=== PATIENT | female | born 1975 | race Caucasian/White ===

== ENCOUNTER 2016-12-27 19:52 | Emergency (ER) | payer MEDICAID ==
[2016-12-27 19:59] VITALS: BMI 62.4
[2016-12-27 20:00] VITALS: PULSE 84; RESP 20; TEMP 97.5; O2SAT 96
[2016-12-27 20:11] VITALS: BP 153/105
--- NOTE | 2016-12-27 21:34 | C.PDOC ---
History Of Present Illness 40 year old female who presents to the ER seeking narcotic pain medication for her chronic pain and nausea. Patient is on an extensive narcotic and benzo regiment at home. Patient was seen recently at [facility] for the same complaint, she was described as drug seeking. Pt lives in [place], unclear why she came to our ED. Denies other complaints at this time. Time Seen by Provider: 12/27/16 21:23 Chief Complaint (Nursing): GI Problem History Per: Patient History/Exam Limitations: no limitations Onset/Duration Of Symptoms: Days Current Symptoms Are (Timing): Still Present Associated Symptoms: Nausea. denies: Fever, Chills, Vomiting, Chest Pain Exacerbating Factors: None Alleviating Factors: None Recent travel outside of the [place]: No Abnormal Vaginal Bleeding: No Past Medical History Reviewed: Historical Data, Nursing Documentation, Vital Signs Vital Signs: Last Vital Signs Temp 97.5 F L 12/27/16 19:59 Pulse 84 12/27/16 19:59 Resp 20 12/27/16 19:59 BP 153/105 H 12/27/16 20:11 Pulse Ox 96 12/27/16 23:09 - Medical History PMH: Atrial Fibrillation, Back Problems, Deep Vein Thrombosis, Pulmonary Embolism, Seizures Surgical History: Back Surgery Family History: States: Unknown Family Hx - Social History Hx Alcohol Use: No Hx Substance Use: No Review Of Systems Constitutional: Negative for: Fever, Chills Gastrointestinal: Positive for: Nausea. Negative for: Vomiting, Abdominal Pain Physical Exam - Physical Exam Appears: Non-toxic, No Acute Distress, Other (somnolent, calm) Skin: Normal Color, Warm, Dry Head: Atraumatic, Normacephalic Eye(s): bilateral: Other (Pin point pupils) Oral Mucosa: Moist Chest: Symmetrical, No Tenderness Cardiovascular: Rhythm Regular, No Murmur Respiratory: Normal Breath Sounds, No Rales, No Rhonchi, No Wheezing Gastrointestinal/Abdominal: Soft, No Tenderness Neurological/Psych: Oriented x3, Normal Speech, Normal Cognition ED Course And Treatment O2 Sat by Pulse Oximetry: 96 (Room air) Pulse Ox Interpretation: Normal Progress Note: Zofran administered. Medical Decision Making Medical Decision Making: drug seeking, seems very narcotic sedated [place] reviewed extensive percocet/valium regimen w/u @ [facility] ED 1 wk ago, no change in "symtpoms" Disposition Doctor Will See Patient In The: Office Counseled Patient/Family Regarding: Studies Performed, Diagnosis - Disposition Referrals: [facility] [Outside] [facility] [Outside] [facility] [Outside] Disposition: HOME/ ROUTINE Disposition Time: 21:34 Condition: GOOD Additional Instructions: follow-up with your pain specialist as needed Prescriptions: Ondansetron ODT [Zofran ODT] 1 odt PO BID PRN #6 odt PRN Reason: Nausea/Vomiting Instructions: Chronic Pain (ED), Acute Nausea and Vomiting (ED) Forms: [employer] (Nigerian) - Clinical Impression Clinical Impression: Generalized pain, Nausea & vomiting - Scribe Statement The provider has reviewed the documentation as recorded by the Scribparish Stoll All medical record entries made by the Isabellaibparish were at my direction and personally dictated by me. I have reviewed the chart and agree that the record accurately reflects my personal performance of the history, physical exam, medical decision making, and the department course for this patient. I have also personally directed, reviewed, and agree with the discharge instructions and disposition.
== END 2016-12-27 21:53 | disposition home or self-care (01) ==
LOC: C.ER 19:52
DX: R11.2 Nausea with vomiting, unspecified (principal); R52 Pain, unspecified

== ENCOUNTER 2017-03-12 19:04 | Emergency (ER) | payer MEDICAID ==
[2017-03-12 19:05] VITALS: BMI 62.4
--- NOTE | 2017-03-12 19:37 | C.PDOC ---
History Of Present Illness 41 y/o female c/o SOB and some chest pain that began today. Patient was recently seen at a different hospital for dehydration and vomiting. Patient has numerous visits in this ER and is currently homeless. Denies abdominal pain, fever, or chills. No palpitations or diaphoresis. Time Seen by Provider: 03/12/17 19:23 Chief Complaint (Nursing): Chest Pain History Per: Patient History/Exam Limitations: no limitations Onset/Duration Of Symptoms: Hrs (Today) Current Symptoms Are (Timing): Still Present Severity: Mild Quality: "Pain" Recent travel outside of the [place]: No Additional History Per: Patient Past Medical History Reviewed: Historical Data, Nursing Documentation, Vital Signs Vital Signs: Last Vital Signs Temp 98.9 F 03/12/17 19:17 Pulse 82 03/12/17 20:05 Resp 16 03/12/17 19:17 BP 124/85 03/12/17 19:17 Pulse Ox 100 03/12/17 22:53 - Medical History PMH: Atrial Fibrillation, Back Problems, Deep Vein Thrombosis, Pulmonary Embolism, Seizures Surgical History: Back Surgery, Cholecystectomy Family History: States: Unknown Family Hx - Social History Hx Alcohol Use: No Hx Substance Use: No Review Of Systems Except As Marked, All Systems Reviewed And Found Negative. Constitutional: Negative for: Fever, Chills, Sweats Cardiovascular: Positive for: Chest Pain. Negative for: Palpitations Respiratory: Positive for: Shortness of Breath. Negative for: Cough Gastrointestinal: Negative for: Abdominal Pain Physical Exam - Physical Exam Appears: Non-toxic, No Acute Distress Skin: Warm, Dry Head: Atraumatic, Normacephalic Oral Mucosa: Moist, No Dry Chest: Symmetrical Cardiovascular: Rhythm Regular, No Murmur Respiratory: Normal Breath Sounds, No Rales, No Rhonchi, No Wheezing Gastrointestinal/Abdominal: Soft, No Tenderness Back: No CVA Tenderness Neurological/Psych: Oriented x3, Normal Speech ED Course And Treatment ECG: Interpreted By Me, Viewed By Me ECG Rhythm: Sinus Rhythm ECG Interpretation: No Acute Changes Interpretation Of ECG: Normal sinus rhythm, poor R-wave progression from V1 to V4 Rate From EC O2 Sat by Pulse Oximetry: 100 (RA) Pulse Ox Interpretation: Normal Progress Note: Psatient noted to be stable. No episode of vomiting noted. She is refusing femoral tap for blood work. No IV site noted for blood exreactrion. Patient gave the sme excuse of signing out of [facility] before as noted from old charts. Medical Decision Making Medical Decision Making: Impression: * SOB and some chest pain that began today. Plans: * EKG * Blood labs * CXR * IV fluids * UA Patient refuses femoral tab for blood work. Disposition Counseled Patient/Family Regarding: Diagnosis - Disposition Referrals: [facility] [Outside] Disposition: HOME/ ROUTINE Disposition Time: 23:36 Condition: STABLE Prescriptions: traMADol/Acetaminophen [Ultracet 325 MG-37.5 MG] 1 tab PO Q6 #10 tab Instructions: Connective Tissue Disorders (ED) Forms: [employer] ([place] Citizen) - POA Present On Arrival: None - Clinical Impression Clinical Impression: Chronic pain - Scribe Statement The provider has reviewed the documentation as recorded by the Scribe Saad carrillo All medical record entries made by the Scribe were at my direction and personally dictated by me. I have reviewed the chart and agree that the record accurately reflects my personal performance of the history, physical exam, medical decision making, and the department course for this patient. I have also personally directed, reviewed, and agree with the discharge instructions and disposition.
[2017-03-12 21:38] LABS: RBC URINE < 1 /hpf (0-3); URINE BILIRUBIN NEGATIVE (NEGATIVE); URINE BLOOD NEGATIVE (NEGATIVE); URINE COLOR Yellow (YELLOW); URINE GLUCOSE (UA) NORMAL (Normal); URINE KETONE NEGATIVE (NEGATIVE); URINE LEUKOCYTE ESTERASE NEG Leu/uL (Negative); URINE PROTEIN NEGATIVE (NEGATIVE); WBC URINE 1 /hpf (0-5)
--- NOTE | 2017-03-12 23:11 | CT ---
EXAM: CT Chest Without Intravenous Contrast CLINICAL HISTORY: 41 years old, female; Pain; Chest pain; Type not specified; Additional info: Chest pain/ SOB TECHNIQUE: Axial computed tomography images of the chest without intravenous contrast. All CT scans at this facility use one or more dose reduction techniques, viz.: automated exposure control; ma/kV adjustment per patient size (including targeted exams where dose is matched to indication; i.e. head); or iterative reconstruction technique. COMPARISON: No relevant prior studies available. FINDINGS: Limitations: Suboptimal positioning. Lack of intravenous contrast. Motion artifact - mild. Lungs: Minimal atelectasis/scarring. No consolidation. Few pulmonary nodules, up to 0.4 cm. Pleural space: Trace LEFT pleural effusion/thickening. No pneumothorax. Heart: Mild cardiomegaly. Trace pericardial effusion. Bones/joints: Curvature of spine. No acute fracture. Soft tissues: 0.7 x 0.4 x 0.6 cm nodule RIGHT breast. Mild stranding within subcutaneous tissues of upper abdominal wall. Vasculature: IVC filter. Lymph nodes: No pathologically enlarged lymph nodes. Gallbladder and bile ducts: Cholecystectomy. Kidneys and ureters: Few small calculi within LEFT kidney. IMPRESSION: 1. Mild cardiomegaly with trace pericardial effusion. 2. Trace LEFT pleural effusion/thickening. 3. RIGHT breast lesion. Followup as clinically warranted. 4. Pulmonary nodules. For low-risk patients, no follow-up is necessary. For high-risk patients (smoking history or other known risk factors) an optional CT at 12 months could be performed. 5. Incidental/non-acute findings are described above.
[2017-03-12] MEDS ORDERED: Tramadol 25 mg PO STA (23:39)
[2017-03-12] MEDS ORDERED: Tramadol 25 mg ONE (23:52)
[2017-03-13 02:10] VITALS: BP 124/81; PULSE 62; RESP 20; TEMP 98.2; O2SAT 97
--- NOTE | 2017-03-14 18:54 | CARD ---
APPROVED REPORT EKG Measurement Heart [id number] <Conclusion> Normal sinus rhythm Poor R wave progression. Borderline EKG
== END 2017-03-13 02:45 | disposition home or self-care (01) ==
LOC: C.ER 19:04
DX: G89.29 Other chronic pain (principal); I48.91 Unspecified atrial fibrillation; Z86.718 Personal history of other venous thrombosis and embolism; Z86.711 Personal history of pulmonary embolism

== ENCOUNTER 2017-04-17 12:48 | Emergency (ER) | payer MEDICAID ==
[2017-04-17 12:48] VITALS: BMI 62.4
[2017-04-17] MEDS ORDERED: Sodium Chloride 0.9% 1,000 ML IV ONE (14:37)
[2017-04-17] MEDS ORDERED: Sodium Chloride 0.9% 1,000 ML ONE (15:46)
[2017-04-17] MEDS ORDERED: DiphenhydrAMINE 50 mg/ml Inj ONE ×2 (15:56→18:39)
[2017-04-17] MEDS ORDERED: DiphenhydrAMINE 50 mg/ml Inj IVP STA ×2 (15:57→18:29)
--- NOTE | 2017-04-17 16:09 | C.PDOC ---
History Of Present Illness 41 year old female with a history of Lupus, chronic pain, osteonecrosis of the right hip, presents to the ED with complaints of nausea and vomiting for four days. While on the bus, riding past the hospital, patient began to vomit and brought herself to the ED. Patient reports she is following up for chronic pain issues in [place], [place] at Lupus/ Multiple Sclerosis clinic. At baseline patient uses a walker to assist with ambulation. Patient is pending a total right hip placement. Patient denies abdominal pain, chest pain, weakness, numbness, fever, chills, or other complaints at this time. Time Seen by Provider: 04/17/17 13:57 Chief Complaint (Nursing): Abdominal Pain History Per: Patient History/Exam Limitations: no limitations Onset/Duration Of Symptoms: Days (4 days ) Current Symptoms Are (Timing): Still Present Radiation Of Pain To:: None Associated Symptoms: Nausea, Vomiting. denies: Fever, Chills, Diarrhea, Urinary Symptoms Exacerbating Factors: None Alleviating Factors: None Recent travel outside of the [place]: No Abnormal Vaginal Bleeding: No Past Medical History Reviewed: Historical Data, Nursing Documentation, Vital Signs Vital Signs: Last Vital Signs Temp 98.3 F 04/17/17 16:34 Pulse 82 04/17/17 16:34 Resp 16 04/17/17 16:34 BP 123/77 04/17/17 16:34 Pulse Ox 98 04/17/17 16:34 - Medical History PMH: Atrial Fibrillation, Back Problems, Deep Vein Thrombosis, Pulmonary Embolism, Seizures Surgical History: Back Surgery, Cholecystectomy Family History: States: Unknown Family Hx - Social History Hx Alcohol Use: No Hx Substance Use: No Review Of Systems Constitutional: Negative for: Fever, Chills Cardiovascular: Negative for: Chest Pain, Palpitations Gastrointestinal: Positive for: Nausea, Vomiting. Negative for: Abdominal Pain , Diarrhea Musculoskeletal: Positive for: Other (chronic right hip pain ) Physical Exam - Physical Exam Appears: Non-toxic, No Acute Distress, Other (Plethoric face, patient is morbidly obese ) Skin: Warm, Dry, No Rash Head: Atraumatic, Normacephalic, No Tenderness Eye(s): bilateral: Normal Inspection, PERRL, EOMI Oral Mucosa: Moist Neck: Supple Chest: Symmetrical, No Deformity Cardiovascular: Rhythm Regular, No Murmur, Other (patient is tachycardic ) Respiratory: No Rales, No Rhonchi, No Wheezing, Other (clear to auscultation bilaterally ) Gastrointestinal/Abdominal: Soft, No Tenderness, No Distention, No Guarding, No Rebound, Other (abdomen is obese ) Extremity: No Normal ROM (painful ROM of the right hip ), Tenderness ( tenderness to the right hip, extending to groin that is chronic ), No Pedal Edema, No Calf Tenderness, Capillary Refill (< 2 second ), No Deformity, No Swelling Neurological/Psych: Oriented x3 ED Course And Treatment - Laboratory Results Result Diagrams: 04/17/17 16:13 04/17/17 16:13 Lab Interpretation: Normal (gertrudis hcg neg.) Urine POC: Negative ECG: Interpreted By Me ECG Rhythm: Sinus Rhythm ECG Interpretation: Normal Rate From EC O2 Sat by Pulse Oximetry: 100 (RA) Pulse Ox Interpretation: Normal - Radiology CXR: Interpreted by Me CXR Interpretation: Yes: No Acute Disease - Other Rad Right hip X-Ray X-Ray: Viewed By Me, Read By Radiologist (chronic R hip arthritis, no fx/disloc) obstrucitve series X-Ray: Viewed By Me, Read By Radiologist (normal cxr/abd with normal stool/gas pattern) Progress Note: EKG, obstructive series, right hip X-Ray, blood work, and labs were ordered. Patient was given Pepcid, Morhpine x 2 rounds, Zofan, and IV fluids. Reevaluation Time: 19:33 Reassessment Condition: Improved Medical Decision Making Medical Decision Making: vomiting today, no acute findings preg neg extensive chronic narcotics regimen, some relief with ED morphine regimen as given. No acute issues, ok for d/c and opt f/u. Disposition Doctor Will See Patient In The: Office Counseled Patient/Family Regarding: Studies Performed, Diagnosis - Disposition Disposition: HOME/ ROUTINE Disposition Time: 19:34 Condition: GOOD Forms: [employer] (Uzbek) - Clinical Impression Clinical Impression: Generalized pain, Vomiting - Scribe Statement The provider has reviewed the documentation as recorded by the Scribe Anais Faith All medical record entries made by the Scribe were at my direction and personally dictated by me. I have reviewed the chart and agree that the record accurately reflects my personal performance of the history, physical exam, medical decision making, and the department course for this patient. I have also personally directed, reviewed, and agree with the discharge instructions and disposition.
[2017-04-17 16:17] LABS: EOS # 0.1 K/uL (0.0-0.7); MONO # 0.4 K/uL (0.0-0.8)
[2017-04-17 16:27] LABS: BASO # 0.1 K/uL (0.0-0.2); BASO % 0.9 % (0.0-2.0); EOS % 2.4 % (0.0-4.0); HEMATOCRIT 33.6 % (34.0-47.0); LYMPH # 1.6 K/uL (1.0-4.3); LYMPH % 27.1 % (20.0-40.0); MEAN CELL VOLUME 82.8 fL (81.0-99.0); MEAN CORPUSCULAR HEMOGLOBIN 25.7 pg (27.0-31.0); MEAN PLATELET VOLUME 7.6 fL (7.2-11.7); MONO % 6.4 % (0.0-10.0); NRBC % 0.4 % (0.0-2.0); RED CELL DISTRIBUTION WIDTH 18.3 % (11.5-14.5); WHITE BLOOD COUNT 6.1 K/uL (4.8-10.8)
[2017-04-17 16:34] VITALS: RESP 16
[2017-04-17 16:51] LABS: ALB/GLOB RATIO 1.3 (1.0-2.1); ALKALINE PHOSPHATASE 64 U/L (38-126); ALT/SGPT 24 U/L (9-52); AST/SGOT 21 U/L (14-36); BILIRUBIN,TOTAL 0.6 mg/dL (0.2-1.3); BLOOD UREA NITROGEN 7 mg/dL (7-17); CALCIUM 8.3 mg/dl (8.6-10.4); CARBON DIOXIDE 24 mmol/L (22-30); CHLORIDE 106 mmol/L (98-107); GFR AFRICAN-AMERICAN > 60; GLUCOSE,RANDOM 88 mg/dL (65-105); POTASSIUM 3.9 mmol/L (3.6-5.2); SODIUM 137 mmol/L (132-148); TOTAL PROTEIN 6.4 g/dL (6.3-8.3)
[2017-04-17] MEDS ORDERED: Morphine 4 MG/ML VIAL ONE (18:39)
[2017-04-17 20:06] VITALS: BP 129/88; PULSE 90; TEMP 98.5; O2SAT 99
--- NOTE | 2017-04-18 08:57 | RAD ---
PROCEDURE: HISTORY: lupus, pending total hip, ? osteonecrosis COMPARISON: None available TECHNIQUE: AP view of the pelvis and applicable frog leg views obtained. FINDINGS: Bilateral superolateral hip joint space narrowing with acetabular roof spurring right greater than left. Right femoral head uncovered with mild deformity- hip dysplasia inferred. L4-5 and L5-S1 facet mild hypertrophic arthrosis. No fracture or dislocation appreciated. Bilateral superolateral hip subarticular cystic changes right greater than left. Probable incidental bone island right femoral head neck junction IMPRESSION: No fracture or dislocation. Bilateral hip arthrosis -right hip dysplasia inferred
--- NOTE | 2017-04-18 09:19 | RAD ---
PROCEDURE: Radiographs of the chest and abdomen (obstructive series) HISTORY: abd pain/n/v COMPARISON: No prior. TECHNIQUE: AP radiograph of the chest, with upright and supine radiographs of the abdomen. FINDINGS: CHEST: Lungs: Clear. Shallow lung volumes Cardiovascular: Normal size heart. No pulmonary vascular congestion. Pleura: No pleural fluid. No pneumothorax. Other findings: None. ABDOMEN AND PELVIS: Bowel: Unremarkable bowel gas pattern. No evidence of mechanical obstruction. Free air: None. Bones: Bilateral hip osteoarthrosis right greater than left-right hip dysplasia inferred Other findings: Large body habitus. IVC filter right L2-3 level. Right upper quadrant post cholecystectomy clips IMPRESSION: No pulmonary infiltrate No bowel obstruction Bilateral hip osteoarthrosis. Hip dysplasia
--- NOTE | 2017-04-18 19:02 | CARD ---
APPROVED REPORT EKG Measurement Heart [id number] OR [id number] <Conclusion> Normal sinus rhythm Normal ECG
== END 2017-04-17 20:06 | disposition home or self-care (01) ==
LOC: C.ER 12:48
DX: R11.10 Vomiting, unspecified (principal); R52 Pain, unspecified
CPT/HCPCS: 73502; 74022; 80053; 83690; 83880; 84484; 84702; 85025; 93005; 96361; 96374; 96375; 96376; 99284; J1200; J2270; J2405; J7040

== ENCOUNTER 2018-03-15 12:50 | Inpatient (IN) | payer MEDICAID ==
[2018-03-15 12:50] VITALS: BMI 62.4
--- NOTE | 2018-03-15 13:30 | C.PDOC ---
History Of Present Illness 42 y/o female with PMHx of Lupus, atrial fibrillation, CVAx2, DVT, PE, and s/p IVC filter placement, presents to the ED complaining of intermittent palpitations for the past 3 days. Patient states symptoms occur generally when she is walking. No associated chest pain or dyspnea. Also reports having some dizziness. Patient also complains of a poor appetite, which she attributes to sores in her mouth. Additionally patient complains of a headache and generalized bodyaches. Time Seen by Provider: 03/15/18 12:59 Chief Complaint (Nursing): Palpitations History Per: Patient History/Exam Limitations: no limitations Onset/Duration Of Symptoms: Days (x3) Current Symptoms Are (Timing): Still Present Associated Symptoms: Dizziness, Headache Past Medical History Reviewed: Historical Data, Nursing Documentation, Vital Signs Vital Signs: Last Vital Signs Temp 98.4 F 03/15/18 13:15 Pulse 102 H 03/15/18 13:15 Resp 22 03/15/18 13:15 BP 146/89 03/15/18 13:15 Pulse Ox 100 03/15/18 13:15 - Medical History PMH: Atrial Fibrillation, Back Problems, CVA (x2), Deep Vein Thrombosis, HTN, Pulmonary Embolism, Seizures Other PMH: Lupus Surgical History: Back Surgery, Cholecystectomy Family History: States: Unknown Family Hx - Social History Hx Alcohol Use: No Hx Substance Use: No - Immunization History Hx Tetanus Toxoid Vaccination: Yes Hx Influenza Vaccination: No Hx Pneumococcal Vaccination: No Review Of Systems Constitutional: Negative for: Fever, Chills, Sweats ENT: Positive for: Mouth Pain (Mouth sores) Cardiovascular: Positive for: Palpitations Respiratory: Negative for: Cough, Shortness of Breath Gastrointestinal: Positive for: Other (Poor appetite). Negative for: Nausea, Vomiting, Abdominal Pain, Diarrhea Musculoskeletal: Positive for: Other (Generalized bodyaches) Skin: Negative for: Rash Neurological: Positive for: Headache, Dizziness Physical Exam - Physical Exam Appears: Non-toxic, No Acute Distress, Other (Appears morbidly obese) Skin: Normal Color, Warm, Dry Head: Atraumatic, Normacephalic Eye(s): bilateral: Normal Inspection, PERRL, EOMI Oral Mucosa: Moist Tongue: Normal Appearing Teeth: Other (Poor dentition, no ulcers visualized) Gingiva: Erythema (Oropharynx and gingiva appear mildly erythematous) Neck: Normal ROM, Supple Chest: Symmetrical Cardiovascular: Rhythm Regular, No Murmur Respiratory: Normal Breath Sounds, No Rales, No Rhonchi, No Wheezing Gastrointestinal/Abdominal: Soft, Tenderness (minimal tenderness diffusely), No Distention Extremity: Tenderness (minimal tenderness diffusely to extremities), Capillary Refill (less than 2sec), No Deformity, No Swelling Pulses: Left Dorsalis Pedis: Normal, Right Dorsalis Pedis: Normal Neurological/Psych: Oriented x3, Normal Speech, Normal Cranial Nerves ED Course And Treatment - Laboratory Results Result Diagrams: 03/15/18 17:55 03/15/18 17:55 O2 Sat by Pulse Oximetry: 100 (RA) Pulse Ox Interpretation: Normal Central Line Placement - Central Line Placement Indication: Unable To Obtain Adequate Peripheral Access Central Line Placement: Right: Internal Jugular The Area Was Thoroughly Prepared With: Chlorhexidine, Draped Using Sterile Technique Area Was Locally Anesthetized With: Lidocaine 1% Procedure: Triple Lumen, Placed Using Standard Seldinger Technique, Sterile Dressing Placed Over Line, Procedure Tolerated Well, CXR Ordered To Confirm Placement Medical Decision Making Medical Decision Making: Impression: 42 y/o F with complaints of intermittent palpitations, dizziness, headache, bodyaches Plan: --CMP --Magnesium --Phosphorous --Troponin I --CBC --Chest X-Ray Multiple RNs unable to obtain access to draw labs. Vascular contacted. Vascular RN attempted access but was also unsuccessful. Central line placed in R IJ by myself, please refer to procedure note for more details. Labs drawn. Normal renal function noted, CTA ordered to r/o PE given tachycardia, palpitations, dizziness and dyspnea. 5mg lopressor ivp given for hypertension, with no improvement in BP. BP went as high as 250's systolic. Thus cardene gtt was started at 5mg/hr. Case discussed with Dr. Fulton, medicine loss control consultant (patient's physicians are all in [place]). Accepts patient for admission. Case also discussed with Dr. Souza who accepts patient to the ICU as she is on cardene gtt. Disposition - Disposition Disposition: HOSPITALIZED Disposition Time: 22:27 Condition: FAIR - Clinical Impression Clinical Impression: Palpitations, Hypertensive urgency - Scribe Statement The provider has reviewed the documentation as recorded by the Scribe (Tram Crane) Provider Attestation: All medical record entries made by the Scribe were at my direction and personally dictated by me. I have reviewed the chart and agree that the record accurately reflects my personal performance of the history, physical exam, medical decision making, and the department course for this patient. I have also personally directed, reviewed, and agree with the discharge instructions and disposition.
--- NOTE | 2018-03-15 14:09 | RAD ---
Date of service: 03/15/2018 HISTORY: palpitations COMPARISON: 03/12/2017 FINDINGS: LUNGS: No active pulmonary disease. PLEURA: No significant pleural effusion identified, no pneumothorax apparent. CARDIOVASCULAR: No atherosclerotic calcification present No radiographic findings to suggest acute or significant cardiovascular disease. OSSEOUS STRUCTURES: No significant abnormalities. VISUALIZED UPPER ABDOMEN: Normal. OTHER FINDINGS: None. IMPRESSION: No active disease. No significant interval change compared to the prior examination(s).
[2018-03-15] MEDS ORDERED: Morphine 4 MG/ML VIAL ONE ×2 (17:55→20:10)
[2018-03-15] MEDS ORDERED: DiphenhydrAMINE 50 mg/ml Inj IVP STA ×2 (18:01→20:02)
[2018-03-15] MEDS ORDERED: DiphenhydrAMINE 50 mg/ml Inj ONE ×2 (18:01→20:10)
[2018-03-15 18:03] LABS: BASO # 0.1 K/uL (0.0-0.2); BASO % 0.9 % (0.0-2.0); EOS # 0.1 K/uL (0.0-0.7); EOS % 1.3 % (0.0-4.0); HEMOGLOBIN 9.7 g/dL (11.0-16.0); LYMPH # 1.9 K/uL (1.0-4.3); LYMPH % 28.6 % (20.0-40.0); MEAN CELL VOLUME 81.8 fL (81.0-99.0); MEAN CORPUSCULAR HGB CONC 31.8 g/dL (33.0-37.0); MEAN PLATELET VOLUME 7.3 fL (7.2-11.7); MONO # 0.4 K/uL (0.0-0.8); MONO % 6.1 % (0.0-10.0); NEUT # 4.3 K/uL (1.8-7.0); NEUT % 63.1 % (50.0-75.0); NRBC % 0.2 % (0.0-2.0); RBC 3.72 Mil/uL (3.80-5.20); RED CELL DISTRIBUTION WIDTH 18.2 % (11.5-14.5); WHITE BLOOD COUNT 6.8 K/uL (4.8-10.8)
[2018-03-15 18:13] LABS: ALB/GLOB RATIO 1.1 (1.0-2.1); ALBUMIN 3.5 g/dL (3.5-5.0); ALT/SGPT 17 U/L (9-52); AST/SGOT 13 U/L (14-36); BLOOD UREA NITROGEN 6 mg/dL (7-17); CALCIUM 8.8 mg/dl (8.6-10.4); GFR NON-AFRICAN AMERICAN > 60
[2018-03-15 18:22] LABS: INR 1.1; PROTHROMBIN TIME 12.4 SECONDS (9.7-12.2)
--- NOTE | 2018-03-15 18:30 | RAD ---
HISTORY: line placement COMPARISON: Chest x-ray 03/15/18 at 1346 hrs TECHNIQUE: Chest, one view. FINDINGS: Right IJ approach central venous catheter extends to the SVC. Examination limited by habitus and hypoinflation. The patient's chin obscures evaluation of the lung apices, particularly on the left. LUNGS: No focal consolidation. Please note that chest x-ray has limited sensitivity for the detection of pulmonary masses. PLEURA: No significant pleural effusion identified. No definite pneumothorax . CARDIOVASCULAR: Borderline cardiomegaly, exaggerated by hypoinflation. No atherosclerotic calcification or mural plaque present. OSSEOUS STRUCTURES: No acute osseous abnormality identified. VISUALIZED UPPER ABDOMEN: Elevation of the right hemidiaphragm. OTHER FINDINGS: None. IMPRESSION: Limited study. Right IJ approach central venous catheter extends to the SVC. Borderline cardiomegaly, exaggerated by hypoinflation.
[2018-03-15] MEDS ORDERED: Morphine 4 MG/ML VIAL IV ONE (19:40)
[2018-03-15] MEDS ORDERED: MethylPREDNISolone 40 mg Vial IVP STA (20:03)
[2018-03-15] MEDS ORDERED: Iodixanol 320 MG/ML 100 ML BOTTLE IV ONE (20:24)
[2018-03-15] MEDS ORDERED: Metoprolol 1 mg/ml Inj IVP ONE (20:59)
[2018-03-15] MEDS ORDERED: Metoprolol 1 mg/ml Inj ONE (21:22)
[2018-03-15] MEDS ORDERED: niCARdipine IV 25 MG in Sodium Chloride 0.9% 240 ML IV SCH (21:30)
[2018-03-15] MEDS ORDERED: Nitroglycerin 2% Ointment Foilpak UD TOP SCH (22:00)
[2018-03-15] MEDS ORDERED: Labetalol 25mg/5ml Syringe IVP PRN (23:03)
[2018-03-15] MEDS ORDERED: Labetalol 5mg/ml (4ml) IVP PRN (23:15)
--- NOTE | 2018-03-15 23:24 | CP.PCM.CON ---
History of Present Illness - History of Present Illness History of Present Illness: 42 y/o female with pmx of PE on pradaxa presents to [facility] with c/o intermittent palpitations. IN ER, patient was noted to have SBP of >200. ICU consulted for monitoring. (+)dyspnea after exerction Pmx: s/p IVC Pmx: CVA/SVT/PE social history Fh: ROS: (+)palpitations, (+)dyspnea after exection, (+)poor appetite, (+)bodyaches Review of Systems - Review of Systems All systems: reviewed and no additional remarkable complaints except Past Patient History - Infectious Disease Hx of Infectious Diseases: None - Tetanus Immunizations Tetanus Immunization: Unknown - Past Medical History & Family History Past Medical History?: No - Past Social History Smoking Status: Never Smoked - CARDIAC Hx Atrial Fibrillation: Yes Hx Hypertension: Yes - PULMONARY Hx Pulmonary Embolism: Yes - NEUROLOGICAL Hx Seizures: Yes - ENDOCRINE/METABOLIC Hx Systemic Lupus Erythematosus: Yes - MUSCULOSKELETAL/RHEUMATOLOGICAL Hx Back Pain: Yes Hx Spinal Stenosis: Yes - PSYCHIATRIC Hx Substance Use: No - SURGICAL HISTORY Hx Cholecystectomy: Yes - ANESTHESIA Hx Anesthesia: Yes Hx Anesthesia Reactions: No Hx Malignant Hyperthermia: No Meds Allergies/Adverse Reactions: Allergies Allergy/AdvReac Type Severity Reaction Status Date / Time iodine Allergy ANAPHYLAXIS Verified 03/12/17 19:20 Penicillins Allergy RASH Verified 03/12/17 19:20 shellfish derived Allergy SWELLING Verified 03/12/17 19:20 sulfamethoxazole Allergy RASH Verified 03/12/17 19:20 [From Bactrim] trimethoprim [From Bactrim] Allergy RASH Verified 03/12/17 19:20 - Medications Medications: Current Medications Diltiazem HCl (Cardizem Cd) 300 mg PO DAILY [facility] Hydralazine HCl (Apresoline) 25 mg PO QID [facility] Nicardipine HCl 25 mg/ Sodium (Chloride) 250 mls @ 50 mls/hr IV .Q5H [facility]; Protocol Last Titration: 03/15/18 22:30 Dose: 10 mg/hr, 100 mls/hr Labetalol HCl (Trandate) 10 mg IVP Q6H PRN PRN Reason: Systolic Blood Pressure Lisinopril (Zestril) 10 mg PO DAILY [facility] Nitroglycerin (Nitro-Bid 2% Oint) 1 ea TOP Q6H [facility] Physical Exam - Head Exam Head Exam: ATRAUMATIC, NORMAL INSPECTION - Eye Exam Eye Exam: EOMI Pupil Exam: PERRL - ENT Exam ENT Exam: Mucous Membranes Moist - Respiratory Exam Respiratory Exam: Clear to Auscultation Bilateral, NORMAL BREATHING PATTERN - Cardiovascular Exam Cardiovascular Exam: REGULAR RHYTHM, +S1, +S2, Systolic Murmur - GI/Abdominal Exam GI & Abdominal Exam: Distended, Normal Bowel Sounds Additional comments: obese - Extremities Exam Extremities exam: Positive for: normal inspection, pedal edema. Negative for: calf tenderness - Neurological Exam Neurological exam: Alert, CN II-XII Intact, Oriented x3 Results - Vital Signs Recent Vital Signs: Last Vital Signs Temp 98.4 F 03/15/18 13:15 Pulse 103 H 03/15/18 22:59 Resp 20 03/15/18 22:59 BP 180/120 H 03/15/18 22:59 Pulse Ox 98 03/15/18 22:59 - Labs Result Diagrams: 03/17/18 06:33 03/17/18 06:33 Labs: Laboratory Results - last 24 hr 03/15/18 03/15/18 03/15/18 17:55 17:55 17:55 WBC 6.8 RBC 3.72 L Hgb 9.7 L Hct 30.5 L MCV 81.8 MCH 26.0 L MCHC 31.8 L RDW 18.2 H Plt Count 386 MPV 7.3 Neut % (Auto) 63.1 Lymph % (Auto) 28.6 [place] % (Auto) 6.1 Eos % (Auto) 1.3 Baso % (Auto) 0.9 Neut # (Auto) 4.3 Lymph # (Auto) 1.9 [place] # (Auto) 0.4 Eos # (Auto) 0.1 Baso # (Auto) 0.1 PT 12.4 H INR 1.1 APTT 32 Sodium 141 Potassium 3.5 L Chloride 106 Carbon Dioxide 27 Anion Gap 11 BUN 6 L Creatinine 0.6 L Est GFR ( Amer) > 60 Est GFR (Non-Af Amer) > 60 Random Glucose 80 Calcium 8.8 Phosphorus 2.3 L Magnesium 1.4 L Total Bilirubin 0.5 AST 13 L D ALT 17 Alkaline Phosphatase 56 Troponin I < 0.0120 Total Protein 6.5 Albumin 3.5 Globulin 3.1 Albumin/Globulin Ratio 1.1 Assessment & Plan - Assessment and Plan (Free Text) Assessment: HTN emergency: uncontrolled, patient given her home medications -repeat BP in ICU stable low, no indication for nitro or hydralazine or lisinopril -Patient was given opioids for pain and BP resolved. -drug/utox pending -Patient remains hemodynamically stable Patient strongly advised to loose weight and stay compliant with her medications. - Date & Time Date: 03/15/18 Time: 23:50
[2018-03-16] MEDS ORDERED: Potassium Chloride 20 mEq ER Tab PO ONE (00:15)
[2018-03-16] MEDS ORDERED: HYDROmorphone 0.5 mg/0.5 ml ISec IVP STA ×2 (00:25→06:05)
[2018-03-16] MEDS: DiphenhydrAMINE 50 mg/ml Inj IVP PRN ×4 (00:55→17:48)
[2018-03-16 01:20] LABS: PHENCYCLIDINE, UR NEGATIVE (NEGATIVE)
[2018-03-16 01:24] LABS: BARBITURATES, UR NEGATIVE (NEGATIVE)
[2018-03-16 01:27] LABS: BENZODIAZEPINES, UR POSITIVE (NEGATIVE); OPIATES, UR POSITIVE (NEGATIVE)
[2018-03-16 01:38] LABS: B-TYPE NATRIURETIC PEPTIDE 44.2 pg/mL (0-450)
[2018-03-16 06:56] LABS: BASO % 0.3 % (0.0-2.0); HEMOGLOBIN 10.1 g/dL (11.0-16.0); LYMPH # 0.8 K/uL (1.0-4.3); LYMPH % 10.9 % (20.0-40.0); MEAN CELL VOLUME 81.7 fL (81.0-99.0); MEAN CORPUSCULAR HEMOGLOBIN 25.4 pg (27.0-31.0); MEAN CORPUSCULAR HGB CONC 31.1 g/dL (33.0-37.0); MEAN PLATELET VOLUME 7.4 fL (7.2-11.7); MONO % 0.6 % (0.0-10.0); NEUT # 6.7 K/uL (1.8-7.0); NEUT % 88.2 % (50.0-75.0); NRBC % 0.1 % (0.0-2.0); RED CELL DISTRIBUTION WIDTH 18.7 % (11.5-14.5); WHITE BLOOD COUNT 7.6 K/uL (4.8-10.8)
[2018-03-16 07:16] LABS: ALB/GLOB RATIO 1.2 (1.0-2.1); ALBUMIN 3.7 g/dL (3.5-5.0); ALT/SGPT 8 U/L (9-52); AST/SGOT 14 U/L (14-36); BLOOD UREA NITROGEN 10 mg/dL (7-17); CALCIUM 8.7 mg/dl (8.6-10.4); GFR NON-AFRICAN AMERICAN > 60
[2018-03-16] MEDS ORDERED: Potassium & Sodium Phosphate PO STA (08:14)
[2018-03-16] MEDS: Magnesium Sulfate 1 gm/100 mL D5W IVPB SCH ×4 (08:26→11:47)
--- NOTE | 2018-03-16 08:58 | CT ---
Date of service: 03/15/2018 PROCEDURE: CT Chest with contrast (Pulmonary Angiogram) HISTORY: r/o PE COMPARISON: None available. TECHNIQUE: Axial computed tomography images were obtained of the chest in the pulmonary arterial phase of enhancement. Coronal and sagittal reformatted images were created and reviewed. Intravenous contrast dose: 100 mL Visipaque 320 Radiation dose: Total exam DLP = 613.28 mGy-cm. This CT exam was performed using one or more of the following dose reduction techniques: Automated exposure control, adjustment of the mA and/or kV according to patient size, and/or use of iterative reconstruction technique. FINDINGS: PULMONARY ARTERIES: There are no filling defects in the pulmonary arteries to suggest acute pulmonary embolism. AORTA: No acute findings. No thoracic aortic aneurysm. LUNGS: The lungs are well inflated. There is linear atelectasis/scarring in the left lower lobe. No nodule, mass or pulmonary consolidation. PLEURAL SPACES: No effusion or pneumothorax. HEART: No atherosclerotic calcifications in the aorta or arge. No cardiomegaly. No significant pericardial effusion. LYMPH NODES: No lymphadenopathy. BONES, CHEST WALL: Unremarkable. No fracture or destructive lesion OTHER FINDINGS: Unremarkable. IMPRESSION: No CT evidence for acute pulmonary embolism. Clear lungs. A preliminary report was provided by [employer].
[2018-03-16] MEDS: diltiaZEM 300 mg/24 Hours CD Cap PO SCH (11:09)
--- NOTE | 2018-03-16 14:51 | CP.CCUPN ---
Addendum entered and electronically signed by Geovanni Whitehead DO 03/16/18 18:06: ID: [email or web address] no leukocytosis disregard septic shock disregard abx Original Note: CCU Subjective - Physician Review Subjective (Free Text): 03/16/18 14:48 Pt seen and examined at bedside. Pt denies any chest pains overnight but now complains of generalized myalgias and back pains. Pt is uncomfortable. Pt denies sob nv fc CCU Objective - Vital Signs / Intake & Output Vital Signs (Last 4 hours): Vital Signs Temp Pulse Resp BP Pulse Ox 03/16/18 14:00 82 19 100 03/16/18 13:54 80 22 144/104 H 99 03/16/18 13:00 81 22 96 03/16/18 12:53 82 13 138/91 H 03/16/18 12:00 97.7 F 79 27 H 100 03/16/18 11:53 78 29 H 135/108 H 100 03/16/18 11:00 80 19 100 03/16/18 10:52 82 14 145/98 H 96 Intake and Output (Last 8hrs): Intake & Output 03/15/18 03/16/18 03/16/18 22:59 06:59 14:59 Intake Total 500 950 Output Total 1050 Balance -550 950 Weight 330 lb Intake: IV 140 Intake, IV Amount 0 400 Right Proximal Port 0 400 Internal Jugular Oral 360 550 Output: Urine 1050 Urine, Voided 1050 Other: # Voids Urine, Voided 2 - Physical Exam Head: Positive for: Atraumatic, Normocephalic Pupils: Positive for: PERRL Extroacular Muscles: Positive for: EOMI Mouth: Positive for: Moist Mucous Membranes Pharnyx: Positive for: Normal Nose (External): Positive for: Atraumatic Respiratory/Chest: Positive for: Clear to Auscultation Cardiovascular: Positive for: Regular Rate and Rhythm, Normal S1, S2 Abdomen: Positive for: Other (central obesity) Upper Extremity: Positive for: Normal Inspection Lower Extremity: Positive for: Normal Inspection Other physical findings (Free Text): geralized body pains positive wadell's 3/5 - Medications Active Medications: Active Medications Generic Name Dose Route Start Last Admin Trade Name Freq PRN Reason Stop Dose Admin Amlodipine Besylate 5 mg 03/16/18 10:00 03/16/18 09:13 Norvasc PO 5 mg DAILY [facility] Administration Dabigatran 150 mg 03/16/18 10:30 03/16/18 11:29 Pradaxa PO 150 mg BID [facility] Administration Diazepam 4 mg 03/16/18 10:28 Valium PO Q12H PRN Diltiazem HCl 300 mg 03/16/18 10:00 03/16/18 11:09 Cardizem Cd PO 300 mg DAILY [facility] Administration Diphenhydramine HCl 50 mg 03/16/18 00:50 03/16/18 11:32 Benadryl IVP 50 mg Q6H PRN Administration Itching / Pruritus Famotidine 20 mg 03/16/18 10:00 03/16/18 09:13 Pepcid PO 20 mg BID [facility] Administration Gabapentin 300 mg 03/16/18 11:19 03/16/18 11:47 Neurontin PO 300 mg BID [facility] Administration Home Med 40 mg 03/23/18 10:00 Glatiramer Acetate [Copaxone] SC QWK [facility] Levetiracetam 1,500 mg 03/16/18 18:00 Keppra PO BID [facility] Metoprolol Tartrate 100 mg 03/16/18 10:00 03/16/18 09:13 Lopressor PO 100 mg Q12 [facility] Administration Quetiapine Fumarate 400 mg 03/16/18 22:00 Seroquel Xr PO HS [facility] Rosuvastatin Calcium 20 mg 03/16/18 22:00 Crestor PO HS [facility] Tramadol HCl 50 mg 03/16/18 10:29 Ultram PO TID PRN Pain, moderate (4-7) Trazodone HCl 150 mg 03/16/18 22:00 Desyrel PO HS [facility] - Patient Studies Lab Studies: Lab Studies 03/16/18 03/16/18 03/16/18 Range/Units 11:31 06:46 06:46 WBC 7.6 (4.8-10.8) K/uL RBC 4.00 (3.80-5.20) Mil/uL Hgb 10.1 L (11.0-16.0) g/dL Hct 32.7 L (34.0-47.0) % MCV 81.7 (81.0-99.0) fL MCH 25.4 L (27.0-31.0) pg MCHC 31.1 L (33.0-37.0) g/dL RDW 18.7 H (11.5-14.5) % Plt Count 426 H (130-400) K/uL MPV 7.4 (7.2-11.7) fL Neut % (Auto) 88.2 H (50.0-75.0) % Lymph % (Auto) 10.9 L (20.0-40.0) % [place] % (Auto) 0.6 (0.0-10.0) % Eos % (Auto) 0.0 (0.0-4.0) % Baso % (Auto) 0.3 (0.0-2.0) % Neut # (Auto) 6.7 (1.8-7.0) K/uL Lymph # (Auto) 0.8 L (1.0-4.3) K/uL [place] # (Auto) 0.0 (0.0-0.8) K/uL Eos # (Auto) 0.0 (0.0-0.7) K/uL Baso # (Auto) 0.0 (0.0-0.2) K/uL PT (9.7-12.2) SECONDS INR APTT (21-34) SECONDS Sodium 139 (132-148) mmol/L Potassium 4.6 (3.6-5.2) mmol/L Chloride 103 (98-107) mmol/L Carbon Dioxide 25 (22-30) mmol/L Anion Gap 16 (10-20) BUN 10 (7-17) mg/dL Creatinine 0.6 L (0.7-1.2) mg/dL Est GFR ( Amer) > 60 Est GFR (Non-Af Amer) > 60 POC Glucose (mg/dL) 171 H (65-110) mg/dL Random Glucose 242 H (65-105) mg/dL Calcium 8.7 (8.6-10.4) mg/dl Phosphorus 1.4 L (2.5-4.5) mg/dL Magnesium 1.4 L (1.6-2.3) mg/dL Total Bilirubin 0.4 (0.2-1.3) mg/dL AST 14 (14-36) U/L ALT 8 L D (9-52) U/L Alkaline Phosphatase 54 (38-126) U/L Troponin I (0.00-0.120) ng/mL NT-Pro-B Natriuret Pep (0-450) pg/mL Total Protein 6.8 (6.3-8.3) g/dL Albumin 3.7 (3.5-5.0) g/dL Globulin 3.1 (2.2-3.9) gm/dL Albumin/Globulin Ratio 1.2 (1.0-2.1) Urine Opiates Screen (NEGATIVE) Urine Methadone Screen (NEGATIVE) Ur Barbiturates Screen (NEGATIVE) Ur Phencyclidine Scrn (NEGATIVE) Ur Amphetamines Screen (NEGATIVE) U Benzodiazepines Scrn (NEGATIVE) U Oth Cocaine Metabols (NEGATIVE) U Cannabinoids Screen (NEGATIVE) 03/16/18 03/16/18 03/15/18 Range/Units 00:53 00:53 17:55 WBC (4.8-10.8) K/uL RBC (3.80-5.20) Mil/uL Hgb (11.0-16.0) g/dL Hct (34.0-47.0) % MCV (81.0-99.0) fL MCH (27.0-31.0) pg MCHC (33.0-37.0) g/dL RDW (11.5-14.5) % Plt Count (130-400) K/uL MPV (7.2-11.7) fL Neut % (Auto) (50.0-75.0) % Lymph % (Auto) (20.0-40.0) % [place] % (Auto) (0.0-10.0) % Eos % (Auto) (0.0-4.0) % Baso % (Auto) (0.0-2.0) % Neut # (Auto) (1.8-7.0) K/uL Lymph # (Auto) (1.0-4.3) K/uL [place] # (Auto) (0.0-0.8) K/uL Eos # (Auto) (0.0-0.7) K/uL Baso # (Auto) (0.0-0.2) K/uL PT 12.4 H (9.7-12.2) SECONDS INR 1.1 APTT 32 (21-34) SECONDS Sodium (132-148) mmol/L Potassium (3.6-5.2) mmol/L Chloride (98-107) mmol/L Carbon Dioxide (22-30) mmol/L Anion Gap (10-20) BUN (7-17) mg/dL Creatinine (0.7-1.2) mg/dL Est GFR ( Amer) Est GFR (Non-Af Amer) POC Glucose (mg/dL) (65-110) mg/dL Random Glucose (65-105) mg/dL Calcium (8.6-10.4) mg/dl Phosphorus (2.5-4.5) mg/dL Magnesium (1.6-2.3) mg/dL Total Bilirubin (0.2-1.3) mg/dL AST (14-36) U/L ALT (9-52) U/L Alkaline Phosphatase (38-126) U/L Troponin I < 0.0120 (0.00-0.120) ng/mL NT-Pro-B Natriuret Pep 44.2 (0-450) pg/mL Total Protein (6.3-8.3) g/dL Albumin (3.5-5.0) g/dL Globulin (2.2-3.9) gm/dL Albumin/Globulin Ratio (1.0-2.1) Urine Opiates Screen Positive H (NEGATIVE) Urine Methadone Screen Negative (NEGATIVE) Ur Barbiturates Screen Negative (NEGATIVE) Ur Phencyclidine Scrn Negative (NEGATIVE) Ur Amphetamines Screen Negative (NEGATIVE) U Benzodiazepines Scrn Positive (NEGATIVE) U Oth Cocaine Metabols Negative (NEGATIVE) U Cannabinoids Screen Negative (NEGATIVE) 03/15/18 03/15/18 Range/Units 17:55 17:55 WBC 6.8 (4.8-10.8) K/uL RBC 3.72 L (3.80-5.20) Mil/uL Hgb 9.7 L (11.0-16.0) g/dL Hct 30.5 L (34.0-47.0) % MCV 81.8 (81.0-99.0) fL MCH 26.0 L (27.0-31.0) pg MCHC 31.8 L (33.0-37.0) g/dL RDW 18.2 H (11.5-14.5) % Plt Count 386 (130-400) K/uL MPV 7.3 (7.2-11.7) fL Neut % (Auto) 63.1 (50.0-75.0) % Lymph % (Auto) 28.6 (20.0-40.0) % [place] % (Auto) 6.1 (0.0-10.0) % Eos % (Auto) 1.3 (0.0-4.0) % Baso % (Auto) 0.9 (0.0-2.0) % Neut # (Auto) 4.3 (1.8-7.0) K/uL Lymph # (Auto) 1.9 (1.0-4.3) K/uL [place] # (Auto) 0.4 (0.0-0.8) K/uL Eos # (Auto) 0.1 (0.0-0.7) K/uL Baso # (Auto) 0.1 (0.0-0.2) K/uL PT (9.7-12.2) SECONDS INR APTT (21-34) SECONDS Sodium 141 (132-148) mmol/L Potassium 3.5 L (3.6-5.2) mmol/L Chloride 106 (98-107) mmol/L Carbon Dioxide 27 (22-30) mmol/L Anion Gap 11 (10-20) BUN 6 L (7-17) mg/dL Creatinine 0.6 L (0.7-1.2) mg/dL Est GFR ( Amer) > 60 Est GFR (Non-Af Amer) > 60 POC Glucose (mg/dL) (65-110) mg/dL Random Glucose 80 (65-105) mg/dL Calcium 8.8 (8.6-10.4) mg/dl Phosphorus 2.3 L (2.5-4.5) mg/dL Magnesium 1.4 L (1.6-2.3) mg/dL Total Bilirubin 0.5 (0.2-1.3) mg/dL AST 13 L D (14-36) U/L ALT 17 (9-52) U/L Alkaline Phosphatase 56 (38-126) U/L Troponin I < 0.0120 (0.00-0.120) ng/mL NT-Pro-B Natriuret Pep (0-450) pg/mL Total Protein 6.5 (6.3-8.3) g/dL Albumin 3.5 (3.5-5.0) g/dL Globulin 3.1 (2.2-3.9) gm/dL Albumin/Globulin Ratio 1.1 (1.0-2.1) Urine Opiates Screen (NEGATIVE) Urine Methadone Screen (NEGATIVE) Ur Barbiturates Screen (NEGATIVE) Ur Phencyclidine Scrn (NEGATIVE) Ur Amphetamines Screen (NEGATIVE) U Benzodiazepines Scrn (NEGATIVE) U Oth Cocaine Metabols (NEGATIVE) U Cannabinoids Screen (NEGATIVE) Laboratory Results - last 24 hr 03/15/18 03/15/18 03/15/18 17:55 17:55 17:55 WBC 6.8 RBC 3.72 L Hgb 9.7 L Hct 30.5 L MCV 81.8 MCH 26.0 L MCHC 31.8 L RDW 18.2 H Plt Count 386 MPV 7.3 Neut % (Auto) 63.1 Lymph % (Auto) 28.6 [place] % (Auto) 6.1 Eos % (Auto) 1.3 Baso % (Auto) 0.9 Neut # (Auto) 4.3 Lymph # (Auto) 1.9 [place] # (Auto) 0.4 Eos # (Auto) 0.1 Baso # (Auto) 0.1 PT 12.4 H INR 1.1 APTT 32 Sodium 141 Potassium 3.5 L Chloride 106 Carbon Dioxide 27 Anion Gap 11 BUN 6 L Creatinine 0.6 L Est GFR ( Amer) > 60 Est GFR (Non-Af Amer) > 60 POC Glucose (mg/dL) Random Glucose 80 Calcium 8.8 Phosphorus 2.3 L Magnesium 1.4 L Total Bilirubin 0.5 AST 13 L D ALT 17 Alkaline Phosphatase 56 Troponin I < 0.0120 NT-Pro-B Natriuret Pep Total Protein 6.5 Albumin 3.5 Globulin 3.1 Albumin/Globulin Ratio 1.1 Urine Opiates Screen Urine Methadone Screen Ur Barbiturates Screen Ur Phencyclidine Scrn Ur Amphetamines Screen U Benzodiazepines Scrn U Oth Cocaine Metabols U Cannabinoids Screen 03/16/18 03/16/18 03/16/18 00:53 00:53 06:46 WBC 7.6 RBC 4.00 Hgb 10.1 L Hct 32.7 L MCV 81.7 MCH 25.4 L MCHC 31.1 L RDW 18.7 H Plt Count 426 H MPV 7.4 Neut % (Auto) 88.2 H Lymph % (Auto) 10.9 L [place] % (Auto) 0.6 Eos % (Auto) 0.0 Baso % (Auto) 0.3 Neut # (Auto) 6.7 Lymph # (Auto) 0.8 L [place] # (Auto) 0.0 Eos # (Auto) 0.0 Baso # (Auto) 0.0 PT INR APTT Sodium Potassium Chloride Carbon Dioxide Anion Gap BUN Creatinine Est GFR ( Amer) Est GFR (Non-Af Amer) POC Glucose (mg/dL) Random Glucose Calcium Phosphorus Magnesium Total Bilirubin AST ALT Alkaline Phosphatase Troponin I < 0.0120 NT-Pro-B Natriuret Pep 44.2 Total Protein Albumin Globulin Albumin/Globulin Ratio Urine Opiates Screen Positive H Urine Methadone Screen Negative Ur Barbiturates Screen Negative Ur Phencyclidine Scrn Negative Ur Amphetamines Screen Negative U Benzodiazepines Scrn Positive U Oth Cocaine Metabols Negative U Cannabinoids Screen Negative 03/16/18 03/16/18 06:46 11:31 WBC RBC Hgb Hct MCV MCH MCHC RDW Plt Count MPV Neut % (Auto) Lymph % (Auto) [place] % (Auto) Eos % (Auto) Baso % (Auto) Neut # (Auto) Lymph # (Auto) [place] # (Auto) Eos # (Auto) Baso # (Auto) PT INR APTT Sodium 139 Potassium 4.6 Chloride 103 Carbon Dioxide 25 Anion Gap 16 BUN 10 Creatinine 0.6 L Est GFR ( Amer) > 60 Est GFR (Non-Af Amer) > 60 POC Glucose (mg/dL) 171 H Random Glucose 242 H Calcium 8.7 Phosphorus 1.4 L Magnesium 1.4 L Total Bilirubin 0.4 AST 14 ALT 8 L D Alkaline Phosphatase 54 Troponin I NT-Pro-B Natriuret Pep Total Protein 6.8 Albumin 3.7 Globulin 3.1 Albumin/Globulin Ratio 1.2 Urine Opiates Screen Urine Methadone Screen Ur Barbiturates Screen Ur Phencyclidine Scrn Ur Amphetamines Screen U Benzodiazepines Scrn U Oth Cocaine Metabols U Cannabinoids Screen Fingerstick Blood Sugar Results: 171 Review of Systems - Review of Systems All systems: reviewed and no additional remarkable complaints except (as per hpi) Critical Care Progress Note - Nutrition Nutrition: Nutrition Category Date Time Status Heart Healthy Diet [DIET] Diets 03/15/18 Dinner Active Assessment/Plan - Assessment and Plan (Free Text) Assessment: Neuro: fibromyalgia -recieved morphine x2 and dilaudid x2 -tramadol 100 stat -tramadol 50 tid -gabapentin 300 q12 ms - mtx on monday Cardio: - Norvasc 5 - cardizem 300 mg PO QD Pulm: - NC prn - maintain spO2 >92% GI: -pepcid 20 bid Endo: - Maintain euglycemia 140-180 Renal: - monitor and replete electrolytes as needed ID: - Septic shock on arrival - Currently on Cipro and Vanco, for abx as per ID
[2018-03-16] MEDS ORDERED: Metoprolol 1 mg/ml Inj IVP STA (17:33)
--- NOTE | 2018-03-16 17:42 | CARD ---
APPROVED REPORT Date of service: 03/15/2018 EKG Measurement Heart [id number] <Conclusion> Sinus tachycardia Possible Left atrial enlargement Borderline ECG
[2018-03-16] MEDS ORDERED: Labetalol 5mg/ml (4ml) IV ONE (18:32)
[2018-03-16] MEDS ORDERED: QUEtiapine 200 mg XR Tab PO SCH (22:00)
[2018-03-16] MEDS ORDERED: DiphenhydrAMINE 50 mg/ml Inj IVP ONE (22:10)
[2018-03-17 06:43] LABS: BASO # 0.1 K/uL (0.0-0.2); BASO % 0.6 % (0.0-2.0); EOS # 0.1 K/uL (0.0-0.7); EOS % 1.2 % (0.0-4.0); HEMOGLOBIN 9.5 g/dL (11.0-16.0); LYMPH # 1.9 K/uL (1.0-4.3); LYMPH % 23.7 % (20.0-40.0); MEAN CORPUSCULAR HEMOGLOBIN 25.6 pg (27.0-31.0); MEAN CORPUSCULAR HGB CONC 30.8 g/dL (33.0-37.0); MEAN PLATELET VOLUME 7.5 fL (7.2-11.7); MONO # 0.4 K/uL (0.0-0.8); MONO % 5.4 % (0.0-10.0); NEUT # 5.6 K/uL (1.8-7.0); NEUT % 69.1 % (50.0-75.0); NRBC % 0.1 % (0.0-2.0); RBC 3.72 Mil/uL (3.80-5.20); RED CELL DISTRIBUTION WIDTH 18.4 % (11.5-14.5); WHITE BLOOD COUNT 8.2 K/uL (4.8-10.8)
[2018-03-17 06:58] LABS: ALB/GLOB RATIO 1.2 (1.0-2.1); ALBUMIN 3.4 g/dL (3.5-5.0); ALT/SGPT 16 U/L (9-52); AST/SGOT 11 U/L (14-36); BLOOD UREA NITROGEN 12 mg/dL (7-17); CALCIUM 8.6 mg/dl (8.6-10.4); GFR NON-AFRICAN AMERICAN > 60
[2018-03-17] MEDS ORDERED: HYDROmorphone 0.5 mg/0.5 ml ISec IVP STA (08:37)
[2018-03-17] MEDS: DiphenhydrAMINE 50 mg/ml Inj IVP PRN (09:09)
[2018-03-17] MEDS ORDERED: Oxycodone/Acetaminophen 5/325 mg Tab PO PRN (09:16)
[2018-03-17] MEDS: diltiaZEM 300 mg/24 Hours CD Cap PO SCH (09:30)
--- NOTE | 2018-03-17 11:25 | CP.PCM.PN ---
Subjective - Date & Time of Evaluation Date of Evaluation: 03/17/18 Time of Evaluation: 11:25 - Subjective Subjective: PT SEEN BY DR. MEYER IN THE ICU AND CLEARED FOR D/C HOME TODAY. RX GIVEN FOR NEW HTN MEDS. PT INSTRUCTED TO CALL HER PMD'S OFFICE ON MONDAY FOR REFILLS FOR HER OTHER MEDICATIONS, SHE CANNOT RECALL EXACTLY WHAT MEDS SHE'S ON, WELL DOSES/FREQUENCIES. PLEASE NOTE THAT MED REC COMPLETED IN THE CHART IS INCORRECT AND PT IS UNABLE TO VERIFY HER CURRENT MEDICATIONS. FOR SAFETY REASONS, SHE SHOULD SPEAK DIRECTLY TO HER PMD REGARDING REFILLS. THIS WAS ALSO DISCUSSED WITH PT'S RN. NO FURTHER ORDERS. -FOLLOW UP WITH DR. MEYER IN THE OFFICE WITHIN 7 DAYS---CALL THE OFFICE ON MONDAY TO MAKE AN APPOINTMENT. -CONTINUE ALL OF YOUR HOME MEDICATIONS USUAL. STOP TAKING YOUR METOPROLOL, THIS HAS BEEN REPLACED BY A DIFFERENT DOSE. -NEW PRESCRIPTIONS SENT TO YOUR PHARMACY INCLUDE: 1) AMLODIPINE (BLOOD PRESSURE)---TAKE 1 TABLET BY MOUTH ONCE A DAY. 2) METOPROLOL (BLOOD PRESSURE)---TAKE 1 TABLET BY MOUTH TWICE A DAY (MORNING AND EVENING) -FOR FURTHER QUESTIONS OR CONCERNS, CONTACT DR. MEYER'S OFFICE. Objective - Vital Signs/Intake and Output Vital Signs (last 24 hours): Temp Pulse Resp BP Pulse Ox 97.9 F 74 20 102/38 L 100 03/17/18 04:00 03/17/18 10:01 03/17/18 10:01 03/17/18 10:01 03/17/18 10:01 Intake and Output: 03/17/18 03/17/18 06:59 18:59 Intake Total 420 1340 Output Total 1000 Balance -580 1340 - Medications Medications: Current Medications Amlodipine Besylate (Norvasc) 5 mg PO DAILY [facility] Last Admin: 03/17/18 09:30 Dose: 5 mg Dabigatran (Pradaxa) 150 mg PO BID [facility] Last Admin: 03/17/18 09:30 Dose: 150 mg Diazepam (Valium) 4 mg PO Q12H PRN Last Admin: 03/16/18 16:10 Dose: 4 mg Diltiazem HCl (Cardizem Cd) 300 mg PO DAILY [facility] Last Admin: 03/17/18 09:30 Dose: 300 mg Diphenhydramine HCl (Benadryl) 50 mg IVP Q6H PRN PRN Reason: Itching / Pruritus Last Admin: 03/17/18 09:09 Dose: 50 mg Famotidine (Pepcid) 20 mg PO BID [facility] Last Admin: 03/17/18 09:29 Dose: 20 mg Gabapentin (Neurontin) 300 mg PO BID [facility] Last Admin: 03/17/18 09:30 Dose: 300 mg Home Med (Glatiramer Acetate [Copaxone]) 40 mg SC QWK [facility] Levetiracetam (Keppra) 1,500 mg PO BID [facility] Last Admin: 03/17/18 09:30 Dose: 1,500 mg Methotrexate (Methotrexate) 1,000 mg IM ONCE ONE Stop: 03/19/18 15:25 Metoprolol Tartrate (Lopressor) 100 mg PO Q12 [facility] Last Admin: 03/17/18 09:29 Dose: 100 mg Oxycodone/Acetaminophen (Percocet 5/325 Mg Tab) 1 tab PO Q4H PRN PRN Reason: Pain, severe (8-10) Stop: 03/20/18 09:17 Quetiapine Fumarate (Seroquel Xr) 400 mg PO HS [facility] Last Admin: 03/16/18 21:09 Dose: 400 mg Rosuvastatin Calcium (Crestor) 20 mg PO [facility] Last Admin: 03/16/18 21:09 Dose: 20 mg Tramadol HCl (Ultram) 50 mg PO TID PRN PRN Reason: Pain, moderate (4-7) Trazodone HCl (Desyrel) 150 mg PO [facility] Last Admin: 03/16/18 21:09 Dose: 150 mg - Labs Labs: 03/17/18 06:33 03/17/18 06:33 PT 12.4 SECONDS (9.7-12.2) H 03/15/18 17:55 INR 1.1 03/15/18 17:55 APTT 32 SECONDS (21-34) 03/15/18 17:55
[2018-03-17 15:15] VITALS: BP 122/50; PULSE 76; RESP 18; TEMP 98.4; O2SAT 99
[2018-03-18 07:21] LABS: OXYCODONE SCREEN negative
[2018-03-19] MEDS ORDERED: Methotrexate 50 mg/2 ml Inj IM ONE (15:24)
[2018-03-23] MEDS ORDERED: GLATIRAMER ACETATE 40 MG SC SCH (10:00)
== END 2018-03-17 13:00 | disposition home or self-care (01) | DRG 199 ==
LOC: C.ER 12:50 → C.9I 22:26
PROVIDERS: ADMIT Internal Medicine Pulmonary Disease; ATTEND Internal Medicine Pulmonary Disease
PROC: 05HM33Z Insertion of Infusion Device into Right Internal Jugular Vein, Percutaneous Approach (ICD-10-PCS; principal; 2018-03-15)
DX: I16.0 Hypertensive urgency (principal); M32.9 Systemic lupus erythematosus, unspecified; R00.0 Tachycardia, unspecified; M79.7 Fibromyalgia; I10 Essential (primary) hypertension; Z86.711 Personal history of pulmonary embolism; Z86.718 Personal history of other venous thrombosis and embolism; Z86.73 Personal history of transient ischemic attack (TIA), and cerebral infarction without residual deficits; Z90.49 Acquired absence of other specified parts of digestive tract; Z79.01 Long term (current) use of anticoagulants

== ENCOUNTER 2018-05-31 15:02 | Emergency (ER) | payer MEDICAID ==
[2018-05-31 15:02] VITALS: BMI 62.4
[2018-05-31] MEDS ORDERED: Sodium Chloride 0.9% 1,000 ML IV ONE (16:31)
[2018-05-31 17:05] LABS: HCG,QUALITATIVE URINE NEGATIVE (NEGATIVE)
[2018-05-31 17:07] LABS: SQUAMOUS EPITHIAL 6 /hpf (0-5); URINE BACTERIA MOD (<OCC); URINE BILIRUBIN NEGATIVE (NEGATIVE); URINE BLOOD NEGATIVE (NEGATIVE); URINE CLARITY Hazy (Clear); URINE COLOR Yellow (YELLOW); URINE GLUCOSE (UA) NORMAL (Normal); URINE LEUKOCYTE ESTERASE 1+ Leu/uL (Negative); URINE PROTEIN NEGATIVE (NEGATIVE)
--- NOTE | 2018-05-31 17:11 | C.PDOC ---
History Of Present Illness 42 year old female with PMH of Lupus, atrial fibrillation, CVA, DVT, PE, and s/p IVC filter placement, presents to the ED complaining of intermittent palpitations, headache, sore throat, mouth pain, sores, malaise, cough, congestion and body pain for one week. Patient also complains of a poor appetite, which she attributes to sores in her mouth. She states she was seen by her doctor and given magic mouthwash which did not help and made her vomit. Denies chest pain or SOB. Time Seen by Provider: 05/31/18 16:11 Chief Complaint (Nursing): Flu-like Symptoms Past Medical History Vital Signs: Last Vital Signs Temp 98 F 05/31/18 15:30 Pulse 106 H 05/31/18 15:30 Resp 22 05/31/18 15:30 BP Pulse Ox 99 05/31/18 15:30 - Medical History PMH: Atrial Fibrillation, Back Problems, CVA (x2), Deep Vein Thrombosis, HTN, Multiple Sclerosis, Pulmonary Embolism, Seizures Surgical History: Back Surgery, Cholecystectomy - [facility] Procedures INSERT INFUSION DEV IN R INT JUGULAR VEIN, PERC (03/15/18) Family History: States: Unknown Family Hx - Social History Hx Alcohol Use: No Hx Substance Use: No - Immunization History Hx Tetanus Toxoid Vaccination: Yes Hx Influenza Vaccination: No Hx Pneumococcal Vaccination: No Review Of Systems Constitutional: Positive for: Malaise, Other (Body aches) ENT: Positive for: Nose Congestion, Mouth Pain (and sores), Throat Pain Cardiovascular: Positive for: Palpitations. Negative for: Chest Pain Respiratory: Positive for: Cough. Negative for: Shortness of Breath Gastrointestinal: Positive for: Other (Decreased appetite) Neurological: Positive for: Headache. Negative for: Weakness, Numbness Physical Exam - Physical Exam Appears: Non-toxic, No Acute Distress, Other (Appears morbidly obese) Skin: Normal Color, Warm, Dry Head: Atraumatic, Normacephalic Eye(s): bilateral: Normal Inspection, PERRL, EOMI Oral Mucosa: Moist Tongue: Normal Appearing (dry) Teeth: Other (Poor dentition, no ulcers visualized) Gingiva: Erythema (gingiva appear mildly erythematous) Neck: Normal ROM, Supple Chest: Symmetrical Cardiovascular: Rhythm Regular, No Murmur Respiratory: Normal Breath Sounds, No Rales, No Rhonchi, No Wheezing Gastrointestinal/Abdominal: Soft, Tenderness (minimal tenderness diffusely), No Distention, No Guarding Extremity: Tenderness (minimal tenderness diffusely to extremities), Capillary Refill (less than 2 sec), No Deformity, No Swelling Pulses: Left Dorsalis Pedis: Normal, Right Dorsalis Pedis: Normal Neurological/Psych: Oriented x3, Normal Speech, Normal Cranial Nerves ED Course And Treatment - Laboratory Results Result Diagrams: 05/31/18 17:06 05/31/18 17:06 Lab Interpretation: Abnormal ECG: Interpreted By Me, Viewed By Me ECG Rhythm: Sinus Rhythm ECG Interpretation: No Acute Changes Rate From EC O2 Sat by Pulse Oximetry: 99 (on room air) Pulse Ox Interpretation: Normal Medical Decision Making Medical Decision Making: Impression: flu like symptoms Plan: * CBC * CMP * UA [facility] Reviewed 05/21/2018 ENDOCET 10-325 MG TABLET 100 04/23/2018 DIAZEPAM 10 MG TABLET 60.0 05/13/2018 ENDOCET 10-325 MG TABLET 20.0 04/23/2018 ENDOCET 10-325 MG [id number] 04/23/2018 DIAZEPAM 10 MG TABLET 60.0 04/20/2018 GABAPENTIN 300 MG CAPSULE 90.0 03/29/2018 ENDOCET 10-325 MG TABLET 100 Progress: Labs reviewed, mild hyperglycemia borderline hypokalemia and UA shows nitrates and urine. Patient is known hard stick, blood was able to be obtained and then IV access lost. 2 RNs tried and the patient got upset and refused further attempts. I explained result to the patient and the plan for treatment with oral medications. Patient asking for "strong medicine". IM Morphine ordered, Zofran, Macrobid and Colace. Patient additionally requested transportation home. Disposition Counseled Patient/Family Regarding: Diagnosis, Need For Followup, Rx Given - Disposition Referrals: [facility] [Outside] [facility] [Outside] [facility] [Outside] Disposition: HOME/ ROUTINE Disposition Time: 18:56 Condition: STABLE Additional Instructions: Follow up with your primary medical doctor or clinic in 2-5 days for further evaluation. Take antibiotic twice daily and pain medications as needed. Return to the emergency department at any time if symptoms persist or worsen. Prescriptions: Nitrofurantoin Macrocrystals [Macrobid] 1 cap PO BID #14 cap traMADol [Ultram] 50 mg PO Q8 #15 tab Instructions: Urinary Tract Infections in Adults Forms: [email or web address] [facility] (Korean) - POA Present On Arrival: None - Clinical Impression Clinical Impression: Influenza-like illness, Chronic pain, UTI (urinary tract infection) - PA / [employer] / Resident Statement MD/DO has reviewed & agrees with the documentation as recorded. - Scribe Statement The provider has reviewed the documentation as recorded by the Scribe Tarm Crane All medical record entries made by the Isabellaibparish were at my direction and personally dictated by me. I have reviewed the chart and agree that the record accurately reflects my personal performance of the history, physical exam, medical decision making, and the department course for this patient. I have also personally directed, reviewed, and agree with the discharge instructions and disposition.
[2018-05-31 17:16] LABS: BASO # 0.1 K/uL (0.0-0.2); BASO % 0.9 % (0.0-2.0); EOS % 0.4 % (0.0-4.0); HEMOGLOBIN 10.7 g/dL (11.0-16.0); LYMPH % 23.4 % (20.0-40.0); MEAN CELL VOLUME 80.2 fL (81.0-99.0); MEAN CORPUSCULAR HEMOGLOBIN 24.6 pg (27.0-31.0); MEAN CORPUSCULAR HGB CONC 30.7 g/dL (33.0-37.0); MEAN PLATELET VOLUME 7.2 fL (7.2-11.7); MONO # 0.8 K/uL (0.0-0.8); MONO % 9.2 % (0.0-10.0); NEUT # 5.7 K/uL (1.8-7.0); NEUT % 66.1 % (50.0-75.0); NRBC % 0.7 % (0.0-2.0); RBC 4.33 Mil/uL (3.80-5.20); RED CELL DISTRIBUTION WIDTH 17.3 % (11.5-14.5); WHITE BLOOD COUNT 8.6 K/uL (4.8-10.8)
--- NOTE | 2018-05-31 17:32 | RAD ---
HISTORY: SOB, cough COMPARISON: Chest x-ray performed 03/15/18 TECHNIQUE: Chest, one view. FINDINGS: Examination limited by habitus and hypoinflation. LUNGS: Left basilar atelectasis/infiltrate and or small pleural effusion. No definite pneumothorax. Please note that chest x-ray has limited sensitivity for the detection of pulmonary masses. CARDIOVASCULAR: Borderline cardiomegaly. No significant atherosclerotic calcification present. OSSEOUS STRUCTURES: Degenerative changes. VISUALIZED UPPER ABDOMEN: Unremarkable. OTHER FINDINGS: None. IMPRESSION: Left basilar atelectasis/infiltrate and or small pleural effusion.
[2018-05-31 17:36] LABS: ALB/GLOB RATIO 1.2 (1.0-2.1); ALBUMIN 3.7 g/dL (3.5-5.0); ALT/SGPT 14 U/L (9-52); AST/SGOT 24 U/L (14-36); BLOOD UREA NITROGEN 17 mg/dL (7-17); CALCIUM 8.6 mg/dl (8.6-10.4); GFR NON-AFRICAN AMERICAN > 60
[2018-05-31] MEDS ORDERED: Morphine 4 MG/ML VIAL ONE (18:20)
[2018-05-31 19:29] VITALS: BP 128/66
[2018-05-31 19:44] VITALS: PULSE 87; RESP 16; TEMP 98.6
[2018-06-03 09:45] VITALS: O2SAT 99
--- NOTE | 2018-06-03 13:08 | CARD ---
APPROVED REPORT Date of service: 05/31/2018 EKG Measurement Heart [id number] <Conclusion> Normal sinus rhythm Normal ECG
== END 2018-05-31 19:43 | disposition home or self-care (01) ==
LOC: C.ER 15:02
DX: J11.1 Influenza due to unidentified influenza virus with other respiratory manifestations (principal); N39.0 Urinary tract infection, site not specified; G89.29 Other chronic pain; I10 Essential (primary) hypertension; I48.91 Unspecified atrial fibrillation; M32.9 Systemic lupus erythematosus, unspecified; Z86.73 Personal history of transient ischemic attack (TIA), and cerebral infarction without residual deficits; Z86.718 Personal history of other venous thrombosis and embolism
CPT/HCPCS: 71045; 80053; 81001; 84703; 85025; 87804; 93005; 96372; 99284; J2270